=== PATIENT | male | born 1960 | race Caucasian/White ===

== ENCOUNTER 2017-12-22 05:56 | Day surgery (SDC) | payer OTHER ==
[~2017-12-22] VITALS: Ht 177.8 cm; Wt 131.5 kg
[~2017-12-22 05:56] MED LIST: CEPH500 PO; OXYACE5T PO; RXSULTRIDS PO; SULTRIDS PO
== END 2017-12-22 22:56 | disposition home or self-care (01) ==
LOC: ORSCMMR 05:56 → ORD 07:30 → ORSCMMR 22:56
PROVIDERS: Surgery
PROC: 0DBN8ZX Excision of Sigmoid Colon, Via Natural or Artificial Opening Endoscopic, Diagnostic (ICD-10-PCS; principal; 2017-12-22 07:30)
DX: Z12.11 Encounter for screening for malignant neoplasm of colon (principal); K63.5 Polyp of colon; K57.30 Diverticulosis of large intestine without perforation or abscess without bleeding; K64.4 Residual hemorrhoidal skin tags; I10 Essential (primary) hypertension; E66.01 Morbid (severe) obesity due to excess calories; Z68.41 Body mass index [BMI] 40.0-44.9, adult
CPT/HCPCS: 88304; J0690; J1100; J1885; J2250; J2405; J2765; J3010; J7120

== ENCOUNTER 2017-12-28 07:49 | Day surgery (SDC) | payer OTHER ==
[~2017-12-28] VITALS: Ht 177.8 cm; Wt 134.3 kg
== END 2017-12-28 09:15 | disposition home or self-care (01) ==
LOC: ORSCMMR 07:49 → ORD 10:15 → ORSCMMR 10:15
PROVIDERS: Internal Medicine Gastroenterology
PROC: 0DBN8ZX Excision of Sigmoid Colon, Via Natural or Artificial Opening Endoscopic, Diagnostic (ICD-10-PCS; principal; 2017-12-28 08:00)
DX: Z12.11 Encounter for screening for malignant neoplasm of colon (principal); K63.5 Polyp of colon; K57.30 Diverticulosis of large intestine without perforation or abscess without bleeding; I10 Essential (primary) hypertension; E66.01 Morbid (severe) obesity due to excess calories; Z68.41 Body mass index [BMI] 40.0-44.9, adult
CPT/HCPCS: 88305; J2250; J3010; J7120